=== PATIENT | female | born 1950 | race Caucasian/White ===

== ENCOUNTER 2017-08-17 15:42 | Emergency (ER) | payer MEDICARE ==
[~2017-08-17] VITALS: Ht 165.1 cm; Wt 92.0 kg
[~2017-08-17 15:42] MED LIST: ALBU1AER INH; ASPI81TA82 PO; BETH25 PO; BUDE150T OR; COZA50TA PO; EXEN2VIA SC; GABA100C4 PO; GLUCTAB OR; IBUP400T20 PO; LEVO50TA4 PO; LIPI20TA PO; MUCI600T PO; MULT1TAB PO
[2017-08-17 15:55] VITALS: BP 159/68; PULSE 87; RESP 18; TEMP 98.5; O2SAT 94
[2017-08-17] MEDS ORDERED: ASPI-516 CHEW (16:03)
[2017-08-17] MEDS ORDERED: BETH10TA2 PO (16:03)
[2017-08-17] MEDS ORDERED: WELLTAB39 PO (16:03)
[2017-08-17] MEDS ORDERED: LIPI40TA PO (16:03)
[2017-08-17] MEDS ORDERED: NEUR300C PO (16:03)
[2017-08-17] MEDS ORDERED: CANA300T PO (16:03)
[2017-08-17] MEDS ORDERED: MULTTAB67 PO (16:03)
[2017-08-17] MEDS ORDERED: TETANUS/DIPHTHERIA TOXOID ADULT 0.5 ML VIAL IM ONE (16:45)
--- NOTE | 2017-08-17 16:56 | PD ---
HPI Chief Complaint: Laceration/Skin Injury Time Seen by Provider: 16:24 Travel History International Travel<30 days: No Contact w/Intl Traveler<30days: No Traveled to known affect area: No History of Present Illness HPI 66-year-old female presents to the emergency room for evaluation of right thumb laceration that occurred just prior to arrival. Patient was using her left hand to cut and onion when she accidentally slipped and cut her right thumb. She immediately ran it under water but did not wash it. States it was bleeding significantly which is what brought her to the emergency room. She reports moderate pain worse when she touches it. She takes baby aspirin daily. Unknown last tetanus. PFSH Past Medical History Depression: Yes High Cholesterol: Yes Diabetes: Yes Patient Takes Glucophage: No Gastrointestinal Disorders: Yes (GASTROPARESIS) Neurologic: Yes (NEUROPATHY) Tetanus Vaccination: > 5 Years Influenza Vaccination: Yes ?: Not Past Surgical History Cholecystectomy: Yes Eye Surgery: Yes Genitourinary Surgery: Yes (BLADDER) Hysterectomy: Yes Social History Alcohol Use: Yes (VERY RARELY) Tobacco Use: No Substance Use: No Allergies-Medications (Allergen,Severity, Reaction): Coded Allergies: cephalexin (Verified Allergy, Severe, RASH, 08/17/17) Reported Meds & Prescriptions Reported Meds & Active Scripts Active Reported Multiple Vitamin 1 Tab 1 Tab PO DAILY Bethanechol 10 Mg Tab 10 Mg PO Q8HR Wellbutrin Xl 24 HR (Bupropion HCl) 300 Mg Tab 300 Mg PO DAILY Lipitor (Atorvastatin Calcium) 40 Mg Tab 40 Mg PO HS Invokana (Canagliflozin) 300 Mg Tab 300 Mg PO DAILY Take before 1st meal of day. Aspirin 81 Mg Chew 81 Mg CHEW DAILY Neurontin (Gabapentin) 300 Mg Cap 300 Mg PO BID Review of Systems Except as stated in HPI: all other systems reviewed are Neg Physical Exam Narrative GENERAL: Well-nourished, well-developed female in no acute distress. Afebrile. Ambulatory. SKIN: Focused skin assessment warm/dry. There is a 1 cm superficial laceration to the right distal thumb without nail involvement. It is nonbleeding and well approximated. HEAD: Normocephalic. EYES: No scleral icterus. No injection or drainage. NECK: Supple, trachea midline. No JVD or lymphadenopathy. CARDIOVASCULAR: Regular rate and rhythm without murmurs, gallops, or rubs. RESPIRATORY: Breath sounds equal bilaterally. No accessory muscle use. MUSCULOSKELETAL: No cyanosis, or edema. Full range of motion of the thumb. Less than 2 second capillary refill distally. Data Data Last Documented VS Vital Signs Date Time Temp Pulse Resp B/P (MAP) Pulse Ox O2 Delivery O2 Flow Rate FiO2 08/17/17 15:55 98.5 87 18 159/68 (98) 94 Orders Orders Tetanus/Diphtheria Tox Adult (Tetanus/Di (08/17/17 16:45) MDM Medical Decision Making Medical Screen Exam Complete: Yes Emergency Medical Condition: Yes Medical Record Reviewed: Yes Differential Diagnosis Laceration, contusion, abrasion, skin tear Narrative Course 66-year-old female presents to the emergency room for evaluation of a laceration to the right thumb that occurred just prior to arrival. Patient accidentally cut herself with a knife while trying to chop onions. Patient reports significant bleeding at home. Moderate pain. On exam there is no bleeding. There is a 1 cm well approximated laceration at the distal thumb. Laceration was thoroughly cleansed and then repaired with Steri-Strips and glue. Patient discharged with wound care instructions and told to follow-up with her primary care physician or return for worsening symptoms. She understands and agrees to plan. Diagnosis Primary Impression: Laceration of right thumb Qualified Codes: S61.011A - Laceration without foreign body of right thumb without damage to nail, initial encounter Referrals: Primary Care Physician Additional Instructions: Keep wound clean and dry. Steri-Strip and glue will fall off on their own. Follow-up with the primary care physician. Return for worsening symptoms as discussed. Med/Other Pt SpecificInfo: Prescription(s) given Disposition: 01 DISCHARGE HOME Condition: Stable Rachell Tompkins Aug 17, 2017 16:56
== END 2017-08-17 17:01 | disposition home or self-care (01) ==
LOC: PHEFT 15:42 → MERGE 15:42 → PHEFT 17:01
DX: S61.011A Laceration without foreign body of right thumb without damage to nail, initial encounter (principal); E78.00 Pure hypercholesterolemia, unspecified; E11.9 Type 2 diabetes mellitus without complications; F32.9 Major depressive disorder, single episode, unspecified; W26.0XXA Contact with knife, initial encounter; Y93.G1 Activity, food preparation and clean up; Z88.8 Allergy status to other drugs, medicaments and biological substances; Z79.82 Long term (current) use of aspirin; Z79.899 Other long term (current) drug therapy
CPT/HCPCS: 12001; 90471; 90714; 96372